=== PATIENT | female | born 1980 | race Hispanic/Latino ===

== ENCOUNTER 2019-12-27 13:14 | Inpatient (IN) | payer SELFPAY ==
[~2019-12-27] VITALS: Ht 154.9 cm; Wt 64.5 kg
[2019-12-27 13:47] LABS: BASOPHILS % (AUTO) 0.2 % (0.0-5.0); EOSINOPHILS % (AUTO) 0.6 % (0.0-8.0); HEMATOCRIT 36.6 % (36-48); LYMPHOCYTES % (AUTO) 5.4 % (21.0-51.0); MEAN CORPUSCULAR HEMOGLOBIN 29.1 pg (27.0-33.0); MEAN CORPUSCULAR HGB CONC 33.1 g/dL (32.0-36.0); MONOCYTES % (AUTO) 7.9 % (3.0-13.0); PLATELET COUNT (AUTO) 324 K/uL (130-400); RED BLOOD CELL COUNT(AUTO) 4.16 MIL/uL (4.00-5.50); RED CELL DISTRIBUTION WIDTH 12.6 % (11.0-15.5); WHITE BLOOD COUNT (AUTO) 25.2 K/uL (4.8-10.8)
[2019-12-27 13:52] LABS: CREATININE 1.2 mg/dL (0.5-1.5); POTASSIUM 3.4 mmol/L (3.5-5.1)
[2019-12-27 13:57] LABS: APPEARANCE,URINE TURBID (CLEAR); BILIRUBIN,URINE SMALL (NEGATIVE); COLOR,URINE YELLOW (YELLOW); GLUCOSE, URINE (UA) NEGATIVE (NEGATIVE); KETONES,URINE NEGATIVE (NEGATIVE); LEUKOCYTE ESTERASE ,URINE LARGE (NEGATIVE); NITRATE,URINE POSITIVE (NEGATIVE); OCCULT BLOOD,URINE LARGE (NEGATIVE); PROTEIN,URINE 100 mg/dL (NEGATIVE)
[2019-12-27 13:58] LABS: ALBUMIN 3.1 g/dL (3.5-5.0); BILIRUBIN,TOTAL 1.3 mg/dL (0.2-1.0); TOTAL PROTEIN, SERUM 7.6 g/dL (6.0-8.3)
[2019-12-27] MEDS ORDERED: ONDANSETRON HCL 4 MG/2 ML VIAL ONE (14:08)
[2019-12-27] MEDS ORDERED: KETOROLAC TROMETHAMINE 30MG/ML ONE (14:08)
[2019-12-27] MEDS ORDERED: CEFTRIAXONE SODIUM 1 GM ONE (14:08)
[2019-12-27 14:16] LABS: HCG,QUAL RESULT NEGATIVE (NEGATIVE)
[2019-12-27 14:28] LABS: BACTERIA,URINE Moderate /HPF (None Seen); WBC,URINE >100 /HPF (0-1)
[2019-12-27] MEDS ORDERED: ONDANSETRON HCL 4 MG/2 ML VIAL IV PRN (17:15)
[2019-12-27] MEDS ORDERED: HYDRALAZINE HCL 20 MG/ML VIAL IV PRN (17:15)
[2019-12-27] MEDS ORDERED: ACETAMINOPHEN 325 MG TAB PO PRN (17:15)
[2019-12-27] MEDS ORDERED: LACTULOSE 20 GM/30 ML UDCUP PO PRN (17:15)
[2019-12-27] MEDS ORDERED: ZOSYN 3.375GM+NS 50ML 50 ML IV ONE (18:00)
[2019-12-27] MEDS ORDERED: SODIUM CHLORIDE 0.9% 1000ML 1,000 ML IV ONE (18:00)
[2019-12-27 19:05] LABS: HEMOGLOBIN A1C 5.4 % (4.0-6.0)
[2019-12-27] MEDS: FAMOTIDINE 20MG TAB 20 MG TAB PO SCH (21:00)
[2019-12-27] MEDS: ZOSYN 3.375GM+NS 50ML 50 ML IV SCH (21:00)
[2019-12-27 21:20] VITALS: BP 113/74
[2019-12-27] MEDS: MORPHINE SULFATE 2 MG/ML 1ML SYG IV PRN (21:38)
[2019-12-27] MEDS: SODIUM CHLORIDE 0.9% 1000ML 1,000 ML IV SCH ×2 (21:40→23:22)
[2019-12-28] MEDS: ACETAMINOPHEN 325 MG TAB PO PRN (00:23)
[2019-12-28 00:28] VITALS: BP 112/71
[2019-12-28] MEDS: SODIUM CHLORIDE 0.9% 1000ML 1,000 ML IV SCH ×3 (02:45→17:42)
[2019-12-28] MEDS: ZOSYN 3.375GM+NS 50ML 50 ML IV SCH ×3 (03:59→21:05)
[2019-12-28 05:25] VITALS: BP 94/62
[2019-12-28 05:36] LABS: HEMATOCRIT 28.5 % (36-48); MEAN CORPUSCULAR HEMOGLOBIN 29.4 pg (27.0-33.0); MEAN CORPUSCULAR HGB CONC 32.6 g/dL (32.0-36.0); MEAN CORPUSCULAR VOLUME 90.2 fL (79-99); RED BLOOD CELL COUNT(AUTO) 3.16 MIL/uL (4.00-5.50); RED CELL DISTRIBUTION WIDTH 12.9 % (11.0-15.5); WHITE BLOOD COUNT (AUTO) 17.4 K/uL (4.8-10.8)
[2019-12-28 05:46] LABS: CREATININE 1.1 mg/dL (0.5-1.5); POTASSIUM 3.9 mmol/L (3.5-5.1)
--- NOTE | 2019-12-28 06:40 | NUR ---
chest pressure PATIENT COMPLAINS OF RIGHT CHEST PRESSURE FIVE OUT OF TEN PAIN SCALE. [employer] SECRETARY NOTIFIED OF PATIENT STATUS ORDERS FOR ECG AND CARDIAC PANEL GIVEN AND CARRIED OUT.
[2019-12-28] MEDS: MORPHINE SULFATE 2 MG/ML 1ML SYG IV PRN ×2 (06:41→21:06)
[2019-12-28 07:05] LABS: CREATINE KINASE, TOTAL 162 U/L (21-232); MYOGLOBIN 37 ng/mL (10-92); TROPONIN I < 0.04 ng/mL (0.00-0.06)
--- NOTE | 2019-12-28 07:38 | NUR ---
CHEST PRESSURE PATIENT STATES SHE HAS IMPROVED ON HER CHEST PAIN. NOW SHE IS PAIN FREE.
[2019-12-28 08:00] VITALS: BP 106/66
[2019-12-28] MEDS: ENOXAPARIN SODIUM 40 MG/0.4 ML SYRINGE SQ SCH (08:55)
[2019-12-28] MEDS: FAMOTIDINE 20MG TAB 20 MG TAB PO SCH ×2 (08:55→21:06)
--- NOTE | 2019-12-28 11:48 | NUR ---
DC PLAN VISITED WITH PATIENT. PATIENT LIVES WITH MOTHER. INDEPENDENT ABLE TO PERFORM ADL'S. PATIENT HAS NO SERVICES OR DME'S. FEELS SAFE TO RETURN HOME. NO PRIMARY SAID TRIED WITH [facility] ROTHMAN BEFORE BUT DID NOT FOLLOW UP. LOW INCOME CLINIC INFO PACKET GIVEN TO PATIENT. Addendum: 12/28/19 at 1150 by JOSE RIGGS RN CM Amended: Links added.
[2019-12-28 11:49] LABS: CREATININE 1.1 mg/dL (0.5-1.5); POTASSIUM 3.7 mmol/L (3.5-5.1)
[2019-12-28 11:53] LABS: BILIRUBIN,TOTAL 1.1 mg/dL (0.2-1.0); TOTAL PROTEIN, SERUM 5.7 g/dL (6.0-8.3)
[2019-12-28 12:00] VITALS: BP 105/56
--- NOTE | 2019-12-28 15:14 | NUR ---
PERSONAL INJURY ATTORNEY REPORTS PT WITH COUGH AND PT REPORTING FEVERS AND SOB. TECH REPORTS IS NOT ON ANY PRECAUTIONS. IN TO ASSESS PATIENT. PT REPORTS COUGH FOR A "FEW HOURS" AND DENIES ANY PRODUCTIVE COUGH TO [place] CEE CHARGE NURSE. O2 SAT=98% ON RA WITH SURGICAL FACE MASK ON. ASKED IF SHE HAD ANY SPUTUM, SHE REPORTS SHE HAD "JUST STARTED COUGHING" AND DENIED ANY SPUTUM. ORAL TEMPERATURE=99.1. AF=099 DENIES CP/DISCOMFORT. REPORTED TO DR. MARY. WILL CONTINUE TO MONITOR. Addendum: 12/28/19 at 1523 by FERNY GONGORA RN PT ASKED FOR ICE CHIPS AND PROVIDED PATIENT WITH CUP OF ICE CHIPS.
[2019-12-28 16:00] VITALS: BP 105/67
[2019-12-28] MEDS ORDERED: ALPRAZOLAM 0.25 MG TABLET PO PRN (19:45)
[2019-12-28 20:24] VITALS: BP 109/75
[2019-12-29] VITALS (7 sets, daily range): BP systolic 109–124; BP diastolic 68–80
[2019-12-29] MEDS: LEVOFLOXACIN 750 MG/D5W 150 ML 150 ML IV SCH ×2 (00:40→20:43)
[2019-12-29] MEDS: ZOSYN 3.375GM+NS 50ML 50 ML IV SCH (04:57)
[2019-12-29 06:12] LABS: BASOPHILS % (AUTO) 0.2 % (0.0-5.0); EOSINOPHILS % (AUTO) 0.4 % (0.0-8.0); HEMATOCRIT 26.8 % (36-48); LYMPHOCYTES % (AUTO) 9.8 % (21.0-51.0); MEAN CORPUSCULAR HEMOGLOBIN 28.5 pg (27.0-33.0); MEAN CORPUSCULAR HGB CONC 31.7 g/dL (32.0-36.0); MEAN CORPUSCULAR VOLUME 89.9 fL (79-99); MONOCYTES % (AUTO) 8.8 % (3.0-13.0); NEUTROPHILS % (AUTO) 79.8 % (40.0-77.0); PLATELET COUNT (AUTO) 245 K/uL (130-400); RED BLOOD CELL COUNT(AUTO) 2.98 MIL/uL (4.00-5.50); RED CELL DISTRIBUTION WIDTH 12.9 % (11.0-15.5); WHITE BLOOD COUNT (AUTO) 13.8 K/uL (4.8-10.8)
[2019-12-29 06:29] LABS: BILIRUBIN,TOTAL 0.8 mg/dL (0.2-1.0); POTASSIUM 3.5 mmol/L (3.5-5.1); TOTAL PROTEIN, SERUM 5.8 g/dL (6.0-8.3)
[2019-12-29] MEDS: FAMOTIDINE 20MG TAB 20 MG TAB PO SCH ×2 (09:41→20:43)
[2019-12-29] MEDS: ENOXAPARIN SODIUM 40 MG/0.4 ML SYRINGE SQ SCH (09:42)
[2019-12-29 11:39] LABS: CRP QUANTITATIVE 233.7 mg/L (0.00-9.0)
[2019-12-29] MEDS ORDERED: IOHEXOL-350 75 ML VIAL IV ONE (14:49)
[2019-12-29 16:34] LABS: HEMATOCRIT 30.8 % (36-48)
[2019-12-29] MEDS: SODIUM CHLORIDE 0.9% 1000ML 1,000 ML IV SCH (20:44)
[2019-12-30] MEDS: SODIUM CHLORIDE 0.9% 1000ML 1,000 ML IV SCH ×2 (03:32→17:27)
[2019-12-30 03:51] VITALS: BP 129/76
[2019-12-30 04:44] LABS: BASOPHILS % (AUTO) 0.4 % (0.0-5.0); EOSINOPHILS % (AUTO) 1.1 % (0.0-8.0); HEMATOCRIT 30.1 % (36-48); LYMPHOCYTES % (AUTO) 17.5 % (21.0-51.0); MEAN CORPUSCULAR HEMOGLOBIN 29.6 pg (27.0-33.0); MEAN CORPUSCULAR HGB CONC 32.9 g/dL (32.0-36.0); MEAN CORPUSCULAR VOLUME 90.1 fL (79-99); MONOCYTES % (AUTO) 9.1 % (3.0-13.0); PLATELET COUNT (AUTO) 312 K/uL (130-400); RED BLOOD CELL COUNT(AUTO) 3.34 MIL/uL (4.00-5.50); RED CELL DISTRIBUTION WIDTH 12.8 % (11.0-15.5)
[2019-12-30 05:08] LABS: ALBUMIN 2.4 g/dL (3.5-5.0); BILIRUBIN,TOTAL 0.6 mg/dL (0.2-1.0); TOTAL PROTEIN, SERUM 6.8 g/dL (6.0-8.3)
[2019-12-30] MEDS: ACETAMINOPHEN 325 MG TAB PO PRN (05:19)
[2019-12-30 08:14] VITALS: BP 114/77
[2019-12-30] MEDS: FAMOTIDINE 20MG TAB 20 MG TAB PO SCH (09:22)
[2019-12-30 12:32] VITALS: BP 114/73
[2019-12-30] MEDS ORDERED: LEVO750T46 PO (15:30)
[2019-12-30 16:12] VITALS: BP 130/89
[2019-12-30] MEDS ORDERED: FERROUS SULFATE 325 MG TABLET.DR PO SCH (21:00)
== END 2019-12-30 18:20 | disposition home or self-care (01) | DRG 872 ==
LOC: EDH 13:14 → EDHIP 17:07 → 3DH 21:18
PROVIDERS: ADMIT Internal Medicine; ATTEND Internal Medicine
DX: A41.50 Gram-negative sepsis, unspecified (principal); N39.0 Urinary tract infection, site not specified; E87.1 Hypo-osmolality and hyponatremia; E87.6 Hypokalemia; D64.9 Anemia, unspecified; R65.20 Severe sepsis without septic shock; E86.0 Dehydration
CPT/HCPCS: 36415; 71045; 71275; 74176; 76705; 80048; 80053; 81001; 81025; 82150; 82270; 82550; 82728; 83036; 83540; 83550; 83605; 83615; 83690; 83874; 84145; 84484; 85014; 85018; 85025; 85027; 85378; 86140; 87040; 87077; 87088; 87186; 93005; G0378; J0696; J1650; J1885; J1956; J2405; J2543; J7030; Q9967

== ENCOUNTER 2024-05-14 05:57 | Emergency (ER) | payer SELFPAY ==
[~2024-05-14] VITALS: Ht 154.9 cm; Wt 75.3 kg
[~2024-05-14 05:57] MED LIST: LEVO750T39 PO
[2024-05-14] MEDS: DiphenhydrAMINE HCL 50 MG/ML VIAL IV ONE (06:23)
[2024-05-14] MEDS: ketOROlac 15MG/ML VIAL (15MG/ML) IV ONE (06:23)
[2024-05-14] MEDS: PROCHLORPERAZINE 10MG/2ML INJ IV ONE (06:23)
[2024-05-14] MEDS: hydroCORTISONE 2.5% CREAM 28G TP SCH (06:29)
[2024-05-14 09:55] LABS: BASOPHILS # (AUTO) 0.06 K/uL (0.00-0.20); BASOPHILS % (AUTO) 0.7 % (0.0-5.0); EOSINOPHILS # (AUTO) 0.22 K/uL (0.00-0.70); EOSINOPHILS % (AUTO) 2.4 % (0.0-8.0); HEMATOCRIT 42.8 % (36-48); IMMATURE GRANULOCYTE ABSOLUTE 0.04 K/uL (0-1); LYMPHOCYTES % (AUTO) 32.8 % (21.0-51.0); MEAN CORPUSCULAR HEMOGLOBIN 30.1 pg (27.0-33.0); MEAN CORPUSCULAR HGB CONC 32.9 g/dL (32.0-36.0); MEAN CORPUSCULAR VOLUME 91.5 fL (79-99); MONOCYTES # (AUTO) 0.9 K/uL (0.1-1.0); NEUTROPHILS # (AUTO) 4.9 K/uL (1.8-7.7); NEUTROPHILS % (AUTO) 53.7 % (40.0-77.0); PLATELET COUNT (AUTO) 291 K/uL (130-400); RED BLOOD CELL COUNT(AUTO) 4.68 MIL/uL (4.00-5.50); RED CELL DISTRIBUTION WIDTH 13.1 % (11.0-15.5); WHITE BLOOD COUNT (AUTO) 9.2 K/uL (4.8-10.8)
[2024-05-14 10:06] LABS: POTASSIUM 3.7 mmol/L (3.5-5.1)
[2024-05-14] MEDS ORDERED: CEPH500B PO (10:41)
[2024-05-14] MEDS ORDERED: FAMC500T8 PO (10:41)
[2024-05-14] MEDS: cefTRIAXone 1G VIAL IVPB SCH (11:00)
[2024-05-14 11:24] VITALS: BP 107/72; PULSE 80; RESP 17; TEMP 97.9; O2SAT 98
== END 2024-05-14 11:32 | disposition home or self-care (01) ==
LOC: EDH 05:57
DX: I88.9 Nonspecific lymphadenitis, unspecified (principal); Z79.899 Other long term (current) drug therapy
CPT/HCPCS: 99284; 96365; 96375; 80048; 85025; 36415; J1200; J0780; J0696; J1885